=== PATIENT | male | born 1990 ===

== ENCOUNTER 2017-04-20 12:21 | Emergency (ER) | payer OTHER ==
[~2017-04-20] VITALS: Ht 170.2 cm; Wt 74.8 kg
[2017-04-20] MEDS ORDERED: Vibramycin100 MG PO (15:34)
[2017-04-27] MEDS ORDERED: CEPH500 PO (11:46)
== END 2017-04-20 16:17 | disposition home or self-care (01) ==
LOC: ER 12:21
DX: L02.31 Cutaneous abscess of buttock (principal); Z87.891 Personal history of nicotine dependence
CPT/HCPCS: 10061; 87070; 87075; 87077; 87186; 87205; 99283

== ENCOUNTER 2017-04-29 07:37 | Emergency (ER) | payer OTHER ==
[~2017-04-29] VITALS: Ht 167.6 cm; Wt 74.8 kg
[~2017-04-29 07:37] MED LIST: CEPH500 PO; Vibramycin100 MG PO
[2017-04-29] MEDS ORDERED: Bactrim Ds Tab1 EACH PO (08:31)
[2017-04-29] MEDS ORDERED: Norco 5-325 Ta1 EACH PO (08:31)
[2017-04-29] MEDS ORDERED: Keflex500 MG PO (08:31)
== END 2017-04-29 09:01 | disposition home or self-care (01) ==
LOC: ER 07:37
DX: L05.01 Pilonidal cyst with abscess (principal); Z79.899 Other long term (current) drug therapy; Z79.2 Long term (current) use of antibiotics; Z87.891 Personal history of nicotine dependence
CPT/HCPCS: 10081; 99283

== ENCOUNTER 2017-06-23 05:30 | Day surgery (SDC) | payer OTHER ==
[~2017-06-23] VITALS: Ht 165.1 cm; Wt 73.5 kg
[~2017-06-23 05:30] MED LIST changes: +Bactrim Ds Tab1 EACH PO; +Keflex500 MG PO; +Norco 5-325 Ta1 EACH PO
== END 2017-06-23 11:08 | disposition home or self-care (01) ==
LOC: ORSCMMR 05:30 → ORD 07:30 → ORSCMMR 07:30
PROVIDERS: Surgery
PROC: 0H88XZZ Division of Buttock Skin, External Approach (ICD-10-PCS; principal; 2017-06-23 07:30)
DX: K60.3 Anal fistula (principal)
CPT/HCPCS: J0690; J2250; J2310; J3010; J7120

== ENCOUNTER 2019-11-23 22:28 | Emergency (ER) | payer SELFPAY ==
[~2019-11-23] VITALS: Ht 165.1 cm; Wt 81.7 kg
[2019-11-23 23:46] LABS: BASOPHILS ABSOLUTE AUTO 0.06 K/mm3 (0.00-0.23); BASOPHILS PERCENT AUTO 1 % (0-2); EOSINOPHILS ABSOLUTE AUTO 0.05 K/mm3 (0.00-0.68); EOSINOPHILS PERCENT AUTO 0 % (0-6); Hematocrit 50.8 % (37.0-53.0); Hemoglobin 17.7 g/dL (13.5-17.5); IMMATURE GRAN ABSOLUTE AUTO 0.04 K/mm3 (0.00-0.10); IMMATURE GRAN PERCENT AUTO 0 % (0-1); LYMPHOCYTES ABSOLUTE AUTO 1.16 K/mm3 (0.84-5.20); LYMPHOCYTES PERCENT AUTO 10 % (21-46); MONOCYTES ABSOLUTE AUTO 0.52 K/mm3 (0.16-1.47); MONOCYTES PERCENT AUTO 4 % (4-13); Mean Corpuscular HGB 32.2 pg (26.0-34.0); Mean Corpuscular HGB Conc 34.8 g/dL (31.5-36.5); Mean Corpuscular Volume 93 fL (80-100); Mean Platelet Volume 9.2 fL (9.1-12.4); NEUTROPHILS ABSOLUTE AUTO 10.25 K/mm3 (1.96-9.15); NEUTROPHILS PERCENT AUTO 85 % (41-73); Platelet Count 282 K/mm3 (150-400); RDW Coefficient Variation 11.6 % (11.7-14.2); RDW Standard Deviation 39.9 fL (35.1-46.3); Red Blood Cell Count 5.49 M/mm3 (4.30-5.90); White Blood Cell Count 12.08 K/mm3 (4.00-11.30)
[2019-11-23 23:58] LABS: Alanine Aminotransfer (ALT/SGP 46 U/L (12-78); Albumin, Blood 4.5 g/dL (3.4-5.0); Alk Phos 121 U/L (50-136); Anion Gap 7 mmol/L (6-16); Aspartate Aminotrans (AST/SGOT 27 U/L (12-37); Bilirubin, Total 0.8 mg/dL (0.1-1.0); Blood Urea Nitrogen 12 mg/dL (8-24); Bun/Creatinine Ratio 15.7 (12.0-20.0); CO2, Blood 27 mmol/L (21-32); Chloride, Blood 106 mmol/L (98-108); Creatinine, Blood 0.76 mg/dL (0.60-1.20); Globulin, Blood 4.4 g/dL (2.2-4.0); Glomerular Filtration Rate >60 (60-); Glucose, Blood 110 mg/dL (70-99); Sodium, Blood 140 mmol/L (136-145); Total Protein, Blood 8.9 g/dL (6.4-8.2)
[2019-11-24 00:04] LABS: International Normalized Ratio 0.99; Prothrombin Time Results 10.6 Sec (9.7-11.5)
[2019-11-24] MEDS ORDERED: ONDA4ODT MM (00:15)
== END 2019-11-24 00:41 | disposition home or self-care (01) ==
LOC: ER 22:28
PROVIDERS: Emergency Medicine
DX: K92.0 Hematemesis (principal); Z87.891 Personal history of nicotine dependence
CPT/HCPCS: 36415; 80053; 85025; 85610; 85730; 96374; 99283-25; A9270-GY; J2405